=== PATIENT | female | born 1980 | race Caucasian/White ===

== ENCOUNTER 2018-01-06 15:08 | Inpatient (IN) | payer OTHER ==
[~2018-01-06] VITALS: Ht 170.2 cm; Wt 95.0 kg
[2018-01-06] MEDS: OXYTOCIN 30U/ 0.9% NaCL 500ML 500 ML IV SCH (01:00)
[2018-01-06 15:32] VITALS: BP 112/65
[2018-01-06] MEDS ORDERED: OXYTOCIN 30U/ 0.9% NaCL 500ML 500 ML IV ONE (15:46)
[2018-01-06] MEDS ORDERED: PREN1TAB60 PO (15:46)
[2018-01-06] MEDS ORDERED: FENTANYL/BUPIV./NS/PF 250 ML EPIDCONT SCH ×3 (15:54→16:43)
[2018-01-06] MEDS ORDERED: ONDANSETRON 2MG/ML, 2ML IVPush PRN (16:00)
[2018-01-06] MEDS ORDERED: FENTANYL PF 100 MCG/2ML IVPush PRN ×2 (16:00→16:30)
[2018-01-06] MEDS: LACTATED RINGERS 1,000 ML IV SCH ×3 (16:00→19:14)
[2018-01-06] MEDS ORDERED: FENTANYL PF 100 MCG/2ML ONE (16:14)
[2018-01-06 16:24] LABS: BASOPHILS # (AUTO) 0.03 x10^3/uL (0-0.1); BASOPHILS % (AUTO) 0 % (0-1); EOSINOPHILS # (AUTO) 0.05 x10^3/uL (0-0.4); EOSINOPHILS % (AUTO) 1 % (1-7); LYMPHOCYTES % (AUTO) 13 % (22-44); MD NO; MEAN CORPUSCULAR HEMOGLOBIN 32.6 pg (27.0-34.8); MEAN CORPUSCULAR HGB CONC 34.2 g/dL (32.4-35.8); MEAN CORPUSCULAR VOLUME 95.4 fL (80-100); MEAN PLATELET VOLUME 8.2 fL (7.4-10.4); MONOCYTES # (AUTO) 0.58 x10^3/uL (0.2-0.8); MONOCYTES % (AUTO) 6 % (2-9); NEUTROPHILS # (AUTO) 7.76 x10^3/uL (1.8-6.8); NEUTROPHILS % (AUTO) 80 % (42-75); PLATELET COUNT 211 x10^3/uL (130-400); RED BLOOD COUNT 4.51 x10^6/uL (3.82-5.3); RED CELL DISTRIBUTION WIDTH 13.4 % (9.6-15.2)
[2018-01-06] MEDS ORDERED: PENICILLIN GK 5,000,000 UNITS in DEXTROSE 5% 100 ML IVPB ONE (16:30)
[2018-01-06] MEDS ORDERED: LACTATED RINGERS 1,000 ML IV SCH (16:43)
[2018-01-06] MEDS ORDERED: BUPIVACAINE 0.25% ONE (16:47)
[2018-01-06] MEDS ORDERED: NALOXONE 0.4 MG/ML, 1ML IVPush PRN ×2 (17:00)
[2018-01-06] MEDS ORDERED: D5%-LACTATED RINGERS 1,000 ML IV SCH (17:00)
[2018-01-06] MEDS ORDERED: LACTATED RINGERS 1,000 ML IVBOLUS PRN ×2 (17:00)
[2018-01-06] MEDS ORDERED: EPHEDRINE 50 MG/ML, 1ML IVPush PRN ×2 (17:00)
[2018-01-06] MEDS ORDERED: FENTANYL PF 500 MCG, BUPIVACAINE/PF 0.5%, 30ML 62.5 ML in SODIUM CHLORIDE 0.9% 177.5 ML EPIDCONT SCH (17:00)
[2018-01-06] MEDS ORDERED: NEWBORN KIT ONE (18:18)
[2018-01-06] MEDS ORDERED: OXYTOCIN 30U/ 0.9% NaCL 500ML 500 ML ONE (19:18)
[2018-01-06] MEDS ORDERED: OXYTOCIN 30U/ 0.9% NaCL 500ML 500 ML IV PRN (20:25)
[2018-01-06] MEDS ORDERED: PENICILLIN GK 2,500,000 UNITS in DEXTROSE 5% 100 ML IVPB SCH (20:30)
[2018-01-06] MEDS ORDERED: CALCIUM CARBONATE 500 MG TAB.CHEW PO PRN (23:00)
[2018-01-06] MEDS ORDERED: DIPH,PERTUSS(ACELL),TET VAC/PF NC IM-VACC PRN (23:00)
[2018-01-06] MEDS ORDERED: MAGNESIUM HYDROXIDE 8%, 30ML UDC PO PRN (23:00)
[2018-01-06] MEDS ORDERED: RHOGAM FROM BLOOD BANK 1 NOTE EA IM/IV ONE (23:00)
[2018-01-06] MEDS ORDERED: MISOPROSTOL 200 MCG TABLET PR PRN (23:00)
[2018-01-06] MEDS ORDERED: MEASLES,MUMPS&RUBELLA VACC/PF 0.5 ML SQ PRN (23:00)
[2018-01-06] MEDS ORDERED: OXYcodone IR 5MG TABLET PO PRN (23:00)
[2018-01-06] MEDS ORDERED: ONDANSETRON 2MG/ML, 2ML IV PRN (23:00)
[2018-01-07] MEDS ORDERED: IBUPROFEN 600 MG TABLET ONE (00:24)
[2018-01-07] MEDS: IBUPROFEN 600 MG TABLET PO PRN ×4 (00:26→20:49)
[2018-01-07 00:40] VITALS: BP 107/69
[2018-01-07] MEDS: LACTATED RINGERS 1,000 ML IV SCH (01:00)
[2018-01-07 04:50] VITALS: BP 106/67
[2018-01-07] MEDS: DOCUSATE 100 MG CAPSULE PO PRN (07:39)
[2018-01-07 08:00] VITALS: BP 108/70
[2018-01-07 08:21] LABS: BASOPHILS # (AUTO) 0.01 x10^3/uL (0-0.1); BASOPHILS % (AUTO) 0 % (0-1); EOSINOPHILS # (AUTO) 0.09 x10^3/uL (0-0.4); EOSINOPHILS % (AUTO) 1 % (1-7); LYMPHOCYTES # (AUTO) 1.18 x10^3/uL (1-3.4); LYMPHOCYTES % (AUTO) 10 % (22-44); MD NO; MEAN CORPUSCULAR HEMOGLOBIN 33.7 pg (27.0-34.8); MEAN CORPUSCULAR HGB CONC 35.1 g/dL (32.4-35.8); MEAN CORPUSCULAR VOLUME 95.8 fL (80-100); MEAN PLATELET VOLUME 8.3 fL (7.4-10.4); MONOCYTES # (AUTO) 0.79 x10^3/uL (0.2-0.8); MONOCYTES % (AUTO) 7 % (2-9); NEUTROPHILS # (AUTO) 9.53 x10^3/uL (1.8-6.8); NEUTROPHILS % (AUTO) 82 % (42-75); PLATELET COUNT 183 x10^3/uL (130-400); RED CELL DISTRIBUTION WIDTH 13.6 % (9.6-15.2)
[2018-01-07] MEDS: OXYTOCIN 30U/ 0.9% NaCL 500ML 500 ML IV SCH ×2 (08:54→18:54)
[2018-01-07] MEDS: PRENATAL VIT/IRON/FA 1 EACH TABLET PO SCH (09:00)
[2018-01-07 13:45] VITALS: BP 110/70
[2018-01-07] MEDS: OXYcodone/APAP 5/325MG TABLET PO PRN (14:27)
[2018-01-07 20:00] VITALS: BP 108/72
[2018-01-08] MEDS: OXYTOCIN 30U/ 0.9% NaCL 500ML 500 ML IV SCH (04:54)
[2018-01-08] MEDS ORDERED: IBUP-1222 PO (09:51)
[2018-01-08] MEDS ORDERED: OXYC-302 PO (09:52)
[2018-01-08] MEDS: DOCUSATE 100 MG CAPSULE PO PRN (10:46)
[2018-01-08] MEDS: IBUPROFEN 600 MG TABLET PO PRN (10:46)
[2018-01-08] MEDS: OXYcodone/APAP 5/325MG TABLET PO PRN (10:46)
[2018-01-08] MEDS: PRENATAL VIT/IRON/FA 1 EACH TABLET PO SCH (10:46)
== END 2018-01-08 11:20 | disposition home or self-care (01) | DRG 807 ==
LOC: LDOP 15:08 → LDIP 15:45 → 2NW 01-07 00:40
PROVIDERS: ADMIT Obstetrics & Gynecology Gynecology; ATTEND Obstetrics & Gynecology Gynecology
PROC: 10E0XZZ Delivery of Products of Conception, External Approach (ICD-10-PCS; principal; 2018-01-06)
PROC: 0KQM0ZZ Repair Perineum Muscle, Open Approach (ICD-10-PCS; 2018-01-06)
PROC: 3E0R3BZ Introduction of Anesthetic Agent into Spinal Canal, Percutaneous Approach (ICD-10-PCS; 2018-01-06)
PROC: 00HU33Z Insertion of Infusion Device into Spinal Canal, Percutaneous Approach (ICD-10-PCS; 2018-01-06)
DX: O34.211 Maternal care for low transverse scar from previous cesarean delivery (principal); Z37.0 Single live birth; O99.824 Streptococcus B carrier state complicating childbirth; O70.1 Second degree perineal laceration during delivery; Z3A.38 38 weeks gestation of pregnancy
CPT/HCPCS: 36415; 82803; 85025; 86850; 86900; G0378; J2540; J3010; J3490; J2590; J7050; J7120